=== PATIENT | female | born 1985 | race Caucasian/White ===

== ENCOUNTER 2024-02-17 13:23 | Observation (INO) | payer OTHER, BC, MEDICAID, SELFPAY ==
[2024-02-17 13:28] VITALS: BP 131/95; PULSE 87; RESP 16; TEMP 36.8; O2SAT 98
--- NOTE | 2024-02-17 13:45 | RT.EKG_ITS ---
APPROVED REPORT Exam: Resting ECG Reason for Exam: baseline/screening Patient Location: E HR:77 bpm ECG Measurements Heart Rate 77 AXIS SC 161 P 53 QRSd 94 QRS 16 QT 358 T 49 QTc 404 Conclusion Sinus rhythm...normal P axis, V-rate 60- 99
--- NOTE | 2024-02-17 13:45 | DI.CT_ITS ---
Exam(s) CT HEAD WO EXAM: CT HEAD WO CLINICAL HISTORY: slurred speech, convulsive activity. TECHNIQUE: Imaging Protocol: Axial computed tomography images with coronal and sagittal reformatted images were created and reviewed COMPARISON: No exams were available for comparison FINDINGS: There are no skull fractures. Surgical defects are noted in the medial taylor of both maxillary sinuse s. There is mucosal thickening in the maxillary sinuses. There is a fluid level in the left maxilla ry sinus. Also some fluid in the nasolacrimal ducts. Frontal and sphenoid sinuses are clear as are either oil air cells and mastoid air cells. There is no evidence of intracranial hemorrhage, mass effect, or shift of midline structures. There are no extra-axial fluid collections. The ventricles are not enlarged or shifted and there is no blo od within the ventricular system nor within the basal cisterns. IMPRESSION: No acute intracranial findings on this noninfused CT scan of the brain. Paranasal sinus findings as above. Report called by myself to ER provider 02/17/2024 2:16 p.m. RADIATION DOSE DELIVERED: Total DLP DATA REPOSITORY: All CT scans at this facility are submitted to the National Radiology Data Registry (NRDR) Dose Index Registry (DIR) with the [employer] (ACR). RADIATION OPTIMIZATION: All CT scans at this facility use at least one of these dose optimization te chniques: automated exposure control; mA and/or kV adjustment per patient size (includes targeted exa ms where dose is matched to clinical indication); or iterative reconstruction.
[2024-02-17 14:02] LABS: Abs Immature Grans 0.02 10^3/uL (0.0-0.06); Absolute Basophil Count 0.04 10^3/uL (0.0-0.2); Absolute Eosinophil Count 0.24 10^3/uL (0.0-0.7); Absolute Lymphocyte Count 2.01 10^3/uL (1.2-3.4); Absolute Monocyte Count 0.54 10^3/uL (0.1-0.8); Absolute Neutrophil Count 4.45 10^3/uL (1.2-6.7); Basophils % 0.5 %; Eosinophils % 3.3 %; HCT 28.9 % (36.0-46.0); HGB 8.2 g/dL (11.2-15.7); Immature Grans % 0.3 %; Lymphocytes % 27.5 %; MCH 18.5 pg (27.0-33.0); MCHC 28.4 % (32.0-36.0); MCV 65 fL (80-95); MPV 10.3 fL (8.0-11.0); Monocytes % 7.4 %; Platelet Count 396 10^3/uL (130-400); RBC 4.44 10^6/uL (3.93-5.22); RDW 17.3 % (11.7-14.6)
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
--- NOTE | 2024-02-17 14:08 | DI.CT_ITS ---
Exam(s) CT BRAIN NECK CTA EXAM: CT BRAIN NECK CTA zz CLINICAL HISTORY: convulsions, VILLATORO, slurred speech onset 1300. TECHNIQUE: Imaging Protocol: Axial CT angiography was performed with multi-slice acquisition and mu lti-planar and/or 3D reconstructions. CONTRAST MATERIAL: Intravenous: Omnipaque 350 Contrast volume:structured data in ml COMPARISON: CT CT HEAD WO from 02/17/2024 FINDINGS: CTA Neck W: Aortic arch anatomy: The aortic arch anatomy is conventional and there is no significant stenosis at the origin of the great vessels off of the aortic arch. No intimal flap evident. Anterior circulation: Both common carotid arteries ascend with normal luminal diameters. At the level the carotid bulbs and proximal internal carotid arteries there is no significant plaque and no hemodynamically significant stenosis evident. Posterior circulation: Both vertebral arteries originate in conventional fashion off of the subclavian arteries and there is no stenosis at the origin of the right vertebral artery. The right vertebral artery is dominant and ascends in the foramen transverse area in with luminal diameter of 4 mm. No evidence of stenosis no r thrombus nor dissection in the right vertebral artery. The left vertebral artery is a very thin vessel throughout its length and is poorly opacified in the lower cervical spine and exhibits a luminal diameter of 1 mm in the upper cervical spine level. It d oes, however, appear to contribute to the formation of the basilar artery at the skull base CTA Brain W: Anterior circulation: Both internal carotid arteries are patent in the skull base-carotid canals as well as within the cave rnous sinuses. The supraclinoid aspects of the ICAs are patent. Both A1 segments are patent as are the anterior cer ebral arteries and there is no evidence of aneurysm at the level of the anterior communicating artery . Both middle cerebral arteries are patent with no evidence of significant stenosis nor intraluminal th rombus. There also no aneurysms of these vessels. Posterior circulation: Vertebral artery ascends without significant stenosis. Distally gives off superior cerebellar arteri es Above this level the basilar artery terminates as patent bilateral posterior cerebral arteries. The right P1 segment is thin and the main flow to the right posterior cerebral artery is from a posterior communicating artery on the right side of the ngcotw-dc-Hxymmh. A similar posterior communicating a rtery is not seen on the left side of the vbjooh-aw-Nggaak. Left P1 segment exhibits normal caliber. There is no evidence of aneurysm at the tip of the basilar artery nor elsewhere in the qjieur-ub-Miqo is. CT BRAIN: There is no evidence of intracranial hemorrhage, mass effect, or shift of midline structures. There are no extra-axial fluid collections. Ventricles are not enlarged or shifted. There are no ring enh ancing lesions in the brain and no abnormal meningeal enhancement. IMPRESSION: 1. Patent carotid arteries in the neck. No hemodynamically significant stenosis. 2. Patent dominant right vertebral artery . The left vertebral artery is extremely thin-attenuated vessel, and given the history here of apparent remote dissection (patient apparently does not know wh ich vessels dissected) I suspect that it may have been the left vertebral artery. 3. Patent intracranial arteries as described above. 4. No aneurysms evident 5. Given this patient's symptoms would recommend follow-up MRI with diffusion imaging Findings called by myself to ER provider 02/17/2024 3:10 p.m. RADIATION DOSE DELIVERED: Total DLP DATA REPOSITORY: All CT scans at this facility are submitted to the National Radiology Data Registry (NRDR) Dose Index Registry (DIR) with the [employer] (ACR). RADIATION OPTIMIZATION: All CT scans at this facility use at least one of these dose optimization te chniques: automated exposure control; mA and/or kV adjustment per patient size (includes targeted exa ms where dose is matched to clinical indication); or iterative reconstruction.
[2024-02-17 14:18] LABS: Lactate 1.2 mmol/L (0.9-1.7)
[2024-02-17] MEDS: LORazepam 2 MG/ML VIAL 0.5 MG IVP (14:21)
[2024-02-17 14:22] LABS: Diff Comment RBC Morph Reviewed; Hypochromasia 2+; Microcytosis 2+
[2024-02-17 14:23] LABS: Poikilocytes 1+
[2024-02-17] MEDS: Normal Saline - Diluent 50 ML VIAL IJ (14:31)
[2024-02-17 14:38] LABS: ALT 13 U/L (14-59); AST 11 U/L (15-37); Albumin 3.2 g/dL (3.4-5.0); Alkaline Phosphatase 67 U/L (46-116); Anion Gap 6.6 mmol/L (3-11); BUN 9 mg/dL (7-18); Bilirubin, Total 0.19 mg/dL (0.2-1.0); CO2 28.4 mmol/L (21.0-32.0); CREATININE 0.8 mg/dL (0.55-1.02); Calcium 8.8 mg/dL (8.5-10.1); Chloride 107 mmol/L (98-107); Creatine Kinase 37 U/L (26-192); Estimated GFR 96.06 (mL/min/1.73m2); Glucose 77 mg/dL (74-106); Lipase 36 U/L (16-77); Magnesium 1.8 mg/dL (1.8-2.4); Potassium 3.5 mmol/L (3.5-5.1); Sodium 142 mmol/L (136-145); TSH (W/Ref FT4) 3.92 uIU/mL (0.36-3.74); Total Protein 6.6 g/dL (6.4-8.2); Troponin I < 50 ng/L (< or =60)
[2024-02-17 14:42] LABS: ETHANOL BLOOD < 3.0 mg/dL (<10)
[2024-02-17] MEDS: Omnipaque 350 MG/ML 100 ML BTL IJ (14:49)
--- NOTE | 2024-02-17 15:00 | DI.MRI_ITS ---
Exam(s) MR ANGIO BRAIN WO EXAM: MR ANGIO BRAIN WO CLINICAL HISTORY: vertebral artery findings TECHNIQUE: Performed on 1.5 yue unit with [id number] sequence. COMPARISON: Prior CT scan reviewed FINDINGS: ANTERIOR CIRCULATION: Both internal carotid arteries are patent in the skull base-carotid canals as well as within the cave rnous sinuses. Supraclinoid aspects of these vessels are patent and nonaneurysmal. Both A1 segments are patent as are the anterior cerebral arteries and there is no aneurysm at the level of the anteri or communicating artery. Both middle cerebral arteries appear patent out to the sylvian fissure brancheS POSTERIOR CIRCULATION: Basilar artery is formed by the dominant right vertebral artery as well as twig like contribution fro m the very thin left vertebral artery.. There is no stenosis along the course of the basilar artery. Distally it gives off superior cerebell ar arteries and above this level gives off posterior cerebral arteries which are patent. The right P 1 segment is narrow but this is related to developmental persistent circulation with a right po sterior communicating artery noted supplying the right [employer]. There is no posterior communicating felisa ry on the opposite-left side of the mcoblh-lo-Mhyhvi and thus the left P1 segment is normal diameter. There is no occlusion of the posterior cerebral arteries. No aneurysm of the tip of the basilar ar scotty. VENOUS: There is no evidence of obvious significant venous sinus thrombosis. IMPRESSION: 1. Patent intracranial arteries 2. Basilar artery at the skull base is formed by the dominant right vertebral artery and twig like co ntribution from the very thin left vertebral artery. DATA REPOSITORY:
--- NOTE | 2024-02-17 15:00 | DI.MRI_ITS ---
Exam(s) MR BRAIN WO EXAM: MR BRAIN WO CLINICAL HISTORY: slurred speech on arrival TECHNIQUE: Multiplanar multisequence MRI of the brain was performed. COMPARISON: No exams were available for comparison FINDINGS: CEREBRAL PARENCHYMA: There is no evidence of intracranial hemorrhage, mass effect, or shift of midline structures. There are no extra-axial fluid collections. Ventricles are not enlarged or shifted. There is no significant focal signal abnormality in the cerebellar hemispheres nor within the janeth, m idbrain, and thalami. There is no abnormal signal abnormality in the periventricular white matter. There are no areas of restricted diffusion evident. There is no significant focal signal abnormality evident on diffusion imaging to suggest acute ischem ic event. PITUITARY GLAND: No mass nor parasellar abnormality. No obvious abnormality in the cavernous sinuses. FLOW VOIDS: The expected intracranial flow voids are noted. No evidence of obvious aneurysm nor obvio us vascular malformation. PARANASAL SINUSES: There is surgical defects in the medial taylor of both maxillary sinuses. Some muc osal thickening is noted in the posterior aspect of both maxillary sinuses. Other paranasal sinuses are clear. ORBITS: No obvious findings. IMPRESSION: No significant intracranial findings on this noninfused MRI scan of the brain. Evidence of previous endoscopic paranasal sinus surgery. Mild mucosal thickening noted in the bilate ral maxillary sinuses. Called by myself to ER provider 02/17/2024 4:40 p.m. DATA REPOSITORY:
[2024-02-17 15:04] LABS: FREE T4 0.95 ng/dL (0.76-1.46)
[2024-02-17 16:13] LABS: Bilirubin Negative (Negative); Blood Negative (Negative); Clarity Clear (Clear); Glucose Negative (Negative); Ketones Negative (Negative); Leukocyte Esterase Negative (Negative); Nitrite Negative (Negative); Specific Gravity 1.015 (1.005-1.025); Urobilinogen 0.2 mg/dL (Up to 0.2)
[2024-02-17 16:19] LABS: *AMPHETAMINES SCREEN URINE Negative (Negative); *BARBITURATES SCREEN URINE Negative (Negative); *BENZODIAZEPINES SCREEN URINE Negative (Negative); Cannabinoids THC Negative (Negative); Cocaine Screen,Urine Negative (Negative); METHADONE URINE SCREEN Negative (Negative); OPIATES URINE SCREEN Negative (Negative)
[2024-02-17 16:20] LABS: Tricyclic Antidepressants Negative (Negative)
--- NOTE | 2024-02-17 17:58 | ED.PROG_ITS ---
Date of service: 02/17/24 Time of Service: 17:59 Medical Decision Making 39-year-old female presents with report of seizure-like activity, was evaluated and and care transition from. Neurology recommends observation admission with outpatient EEG and neurology follow-up. Of note, patient does have baseline a nemia, history of menorrhagia, this has been evaluated in [place] previously. She is yet to establish care with primary care physician here. She is neurologically intact does have some very mild slurred speech at time of reassessment. Otherwise nonfocal neurological exam. She received loading dose of Keppra prior to transition of care. Case discussed with admitting hospitalist who will accept patient to their service for overnight observation Quality:[facility] Health Related Social Needs: No Data to Display Sign Out Sign Out Data: Sign Out Comment: Possible seizure, had deficits on arrival- neuro questions todds paraylsis. Onset at 1300 Recommend OBS admit, outpatient EEG follow-up, 500mg Keppra BID upon d/c if patient wishes to keep driving. Low suspicion for stroke at this time, and recommended against tPa which was not given. Patient was loaded on 40mg/kg keppra and 0.5 mg IV ativan, otherwise no continued seizure activity and deficits resolved very quickly on arrival. Last updated by Riki Petersen PA at 02/17/24 16:17 Discharge Plan Disposition Patient Disposition: Home Discharge Details Clinical Impression: Seizure, Maciel's paralysis, Anemia, H/O menorrhagia Primary Care Provider: Unknown,Unknown ED Provider: Dagmar Ortiz Home Meds and New Rx's Prescriptions: No Action No Known Home Meds
--- NOTE | 2024-02-17 18:15 | W.PM.HP.N ---
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 (has history of gastric sleeve surgery) vitals stable, no evidence of active bleeding or blood loss. case discussed with Dr Webster. History of Present Illness History of Present Illness Chief Complaint: altered level of consciousness Narrative: This is a 39-year-old female patient past medical history significant for menorrhagia with anemia, gastric sleeve, right elbow tendon surgery at [facility] [place], who presented to the emergency department after a period Of altered mental status described as seizure which was witnessed with postictal period and todds paralysis. (Did have about 20 minutes of right-sided paralysis which resolved spontaneously). No known history of seizures. Her workup in the emergency department included a head and neck CTA, a MRI and routine lab work. Lab work of significance included a hemoglobin which was 8.2. she has been advised to have iron infusions in the past but as not been set up. No other abnormal findings. CTA and MRI unremarkable. Vital signs stable and symptoms completely resolved. She did have a teleneuro consultation with recommendation for a Keppra load, EEG and observation overnight. per ED record: -Teleneurology with Dr. Padilla @ 1600 -telemetry neuro recommends no tPA, they question Maciel's paralysis for the patient's deficits during possible postictal state, they recommend MRI, they recommend outpatient neurology follow-up after observation overnight, they do recommend 500 mg Keppra twice daily if the patient wishes to remain driving, they recommend possible reconsultation for any structural abnormality of the brain, do not feel the patient's remote vertebral dissection is related to their deficits observed on arrival. Review of Systems All systems reviewed & are unremarkable except as noted in HPI and below PFSH All Active Problems (Updated 02/17/24 @ 18:20 by Krysten Hubbard NP) Altered level of consciousness (Acute) H/O menorrhagia (Acute) Anemia (Chronic) Maciel's paralysis (Acute) Seizure (Acute) Social History Smoking risk assessment performed?: No Housing: apartment Do you feel safe at home: Yes Do you feel safe in your relationship?: Yes Meds Allergies and Home Medications Allergies Allergy/AdvReac Type Severity Reaction Status Date / Time shellfish derived Allergy Severe Other (See Verified 02/17/24 13:38 Comment) amoxicillin AdvReac Mild Skin Rash Verified 02/17/24 13:38 Latex, Natural Rubber AdvReac Mild Skin Rash Verified 02/17/24 13:38 Home Medications ?Medication ?Instructions ?Recorded ?Confirmed ?Type Unknown [No Known Home Meds] 02/17/24 02/17/24 History Exam Const General: cooperative, healthy appearing, comfortable and no acute distress Nutritional Appearance: average body habitus and well nourished Orientation: alert, awake and oriented x3 HENMT Head: normal to inspection, normocephalic and atraumatic Ears: hearing grossly normal bilaterally Face and sinus: normal facial exam Mouth: oral mucosae normal Eyes General: appearance normal, both eyes and all related structures Pupils: PERRL EOM: EOM intact bilaterally and No nystagmus Neck Neck: normal visual inspection, meningismus present and supple Chest Chest: normal inspection of the chest Resp Effort & Inspection: normal respiratory effort Auscultation: clear to auscultation bilaterally Cardio Rate: regular rate Rhythm: regular rhythm Heart Sounds: no murmurs GI Inspection: normal to inspection Palpation: soft and nontender Auscultation: normal bowel sounds Skin General skin exam: no rashes or lesions noted Neuro General: patient alert, patient awake, patient oriented x3, tone normal and no focal motor deficits Cranial Nerves: no nystagmus Extrem General: normal to inspection and full ROM Psych Appearance: grossly normal Mental Status: mental status grossly normal Speech and Movement: speech and movement normal Mood: congruent mood Affect: normal affect Attitude: cooperative Thought Process: normal Thought Content: normal Insight: insight good Judgment: judgment good Results Labs 02/17/24 13:56 02/17/24 13:56 Labs: Laboratory Results - last 24 hr 02/17/24 02/17/24 02/17/24 13:56 13:56 15:50 WBC 7.30 RBC 4.44 Hgb 8.2 L Hct 28.9 L MCV 65 L MCH 18.5 L MCHC 28.4 L RDW 17.3 H Plt Count 396 MPV 10.3 Immature Gran % 0.3 Neutrophils % 61.0 Lymphocytes % 27.5 Monocytes % 7.4 Eosinophils % 3.3 Basophils % 0.5 Nucleated RBC % 0.0 Absolute Neutrophils 4.45 Absolute Lymphocytes 2.01 Absolute Monocytes 0.54 Absolute Eosinophils 0.24 Absolute Basophils 0.04 RBC Morphology See Below Hypochromasia 2+ Poikilocytosis 1+ Microcytosis 2+ VBG Lactate 1.2 Cancelled Sodium 142 Potassium 3.5 Chloride 107 Carbon Dioxide 28.4 Anion Gap 6.6 BUN 9 Creatinine 0.8 Est GFR (CKD-EPI 2020) 96.06 Glucose 77 Calcium 8.8 Magnesium 1.8 Total Bilirubin 0.19 L AST 11 L ALT 13 L Alkaline Phosphatase 67 Creatine Kinase 37 Troponin I < 50 Total Protein 6.6 Albumin 3.2 L Lipase 36 TSH 3.92 H Free T4 0.95 Urine Color Yellow Urine Clarity Clear Urine pH 7.0 Ur Specific [place] 1.015 Urine Protein Negative Urine Ketones Negative Urine Blood Negative Urine Nitrite Negative Urine Bilirubin Negative Urine Urobilinogen 0.2 Ur Leukocyte Esterase Negative Urine Glucose Negative Urine Opiates Screen Negative Urine Methadone Screen Negative Ur Barbiturates Screen Negative Ur Tricyclics Screen Negative Ur Amphetamines Screen Negative U Benzodiazepines Scrn Negative Urine Cocaine Screen Negative Ur THC Screen Negative Ethyl Alcohol < 3.0 Last Vital Signs Temp 36.8 C 02/17/24 13:28 Pulse 87 02/17/24 13:28 Resp 16 02/17/24 13:28 BP 131/95 H 02/17/24 13:28 Pulse Ox 98 02/17/24 13:28 Time Spent Time spent with Patient: 55-74 minutes Time was spent: preparing to see the patient(eg.review tests), obtaining and/or reviewing separately otained hiistory, ordering medications,tests, procedures, indepentently interpreting results and counseling the patient
[2024-02-17 18:33] LABS: Lab Add On Test DONE
[2024-02-17 19:14] LABS: Iron 12 ug/dL (50-170); Total Iron Binding Capacity 472 ug/dL (250-450)
[2024-02-17 19:38] LABS: Ferritin 3 ng/mL (8-252)
--- NOTE | 2024-02-17 19:57 | W.PCEDHO ---
Registration Status: Primary Language: Preferred Language: ED Information & Data Chief Complaint Seizure 02/17/24 14:10 Chief Complaint Seizure 02/17/24 14:06 Triage Note had a seizure while at work. 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 witnessed seizure by co-workers ~ 1pm . full body seizure of unknown length. pt does not remember events. denies hx of seizures. has a headache which has been there all day . stabbing pain behind right eye. pt states she is a weight loss patient ( sleeve in 2019) and feels she may not have had enough protein. Most Recent Vital Signs Temperature 36.8 C 02/17/24 13:28 Temperature Source Skin 02/17/24 13:28 Pulse 87 02/17/24 13:28 Respiratory Rate 16 02/17/24 13:28 Respiratory Effort Normal, Non-Labored 02/17/24 14:13 Respiratory Depth Normal 02/17/24 14:13 Respiratory Pattern Normal 02/17/24 14:13 Blood Pressure 131/95 H 02/17/24 13:28 Blood Pressure Position Sitting 02/17/24 13:28 Pulse Oximetry 98 02/17/24 13:28 Oxygen Delivery Method Room Air 02/17/24 13:28 Oxygen Flow Rate 0 02/17/24 13:28 Pain Level 7 02/17/24 13:28 Comment took tylenol this morning 02/17/24 13:28 Allergies shellfish derived Allergy (Severe, Verified 02/17/24 13:38) Other (See Comment) throat swelling amoxicillin Adverse Reaction (Mild, Verified 02/17/24 13:38) Skin Rash Latex, Natural Rubber Adverse Reaction (Mild, Verified 02/17/24 13:38) Skin Rash Active Medications Generic Name Dose Route Start Last Admin Trade Name Freq PRN Reason Stop Dose Admin Iohexol 100 ml 02/17/24 14:45 02/17/24 14:49 Omnipaque 350 Mg/Ml 100 Ml Btl IJ 03/18/24 23:59 40 ml DIRECTED JEOVANNY Administration Sodium Chloride 50 ml 02/17/24 14:30 02/17/24 14:31 Normal Saline - Diluent 50 Ml Vial IJ 50 ml .FOR DI USE JEOVANNY Administration IV IV Catheter Type [Right Peripheral IV Antecubital] IV Catheter Gauge [Right 18 Antecubital] Diagnostics 08/02/17/24 02/17/24 Range/Units 15:50 13:56 13:56 WBC 7.30 (4.4-10.8) 10^3/uL RBC 4.44 (3.93-5.22) 10^6/uL Hgb 8.2 L (11.2-15.7) g/dL Hct 28.9 L (36.0-46.0) % MCV 65 L (80-95) fL MCH 18.5 L (27.0-33.0) pg MCHC 28.4 L (32.0-36.0) % RDW 17.3 H (11.7-14.6) % Plt Count 396 (130-400) 10^3/uL MPV 10.3 (8.0-11.0) fL Immature Gran % 0.3 % Neutrophils % 61.0 % Lymphocytes % 27.5 % Monocytes % 7.4 % Eosinophils % 3.3 % Basophils % 0.5 % Nucleated RBC % 0.0 (0.0-0.3) % Absolute Neutrophils 4.45 (1.2-6.7) 10^3/uL Absolute Lymphocytes 2.01 (1.2-3.4) 10^3/uL Absolute Monocytes 0.54 (0.1-0.8) 10^3/uL Absolute Eosinophils 0.24 (0.0-0.7) 10^3/uL Absolute Basophils 0.04 (0.0-0.2) 10^3/uL RBC Morphology See Below Hypochromasia 2+ Poikilocytosis 1+ Microcytosis 2+ VBG Lactate Cancelled 1.2 (0.9-1.7) mmol/L Sodium 142 (136-145) mmol/L Potassium 3.5 (3.5-5.1) mmol/L Chloride 107 (98-107) mmol/L Carbon Dioxide 28.4 (21.0-32.0) mmol/L Anion Gap 6.6 (3-11) mmol/L BUN 9 (7-18) mg/dL Creatinine 0.8 (0.55-1.02) mg/dL Est GFR (CKD-EPI 2020) 96.06 (mL/min/1.73m2) Glucose 77 (74-106) mg/dL Calcium 8.8 (8.5-10.1) mg/dL Magnesium 1.8 (1.8-2.4) mg/dL Iron 12 L (50-170) ug/dL TIBC 472 H (250-450) ug/dL Ferritin 3 L (8-252) ng/mL Total Bilirubin 0.19 L (0.2-1.0) mg/dL AST 11 L (15-37) U/L ALT 13 L (14-59) U/L Alkaline Phosphatase 67 (46-116) U/L Creatine Kinase 37 (26-192) U/L Troponin I < 50 (< or =60) ng/L Total Protein 6.6 (6.4-8.2) g/dL Albumin 3.2 L (3.4-5.0) g/dL Lipase 36 (16-77) U/L TSH 3.92 H (0.36-3.74) uIU/mL Free T4 0.95 (0.76-1.46) ng/dL Urine Color Yellow (Yellow) Urine Clarity Clear (Clear) Urine pH 7.0 (5-8) Ur Specific [place] 1.015 (1.005-1.025) Urine Protein Negative (Neg-Trace) mg/dL Urine Ketones Negative (Negative) mg/dL Urine Blood Negative (Negative) Urine Nitrite Negative (Negative) Urine Bilirubin Negative (Negative) Urine Urobilinogen 0.2 (Up to 0.2) mg/dL Ur Leukocyte Esterase Negative (Negative) Urine Glucose Negative (Negative) mg/dL Urine Opiates Screen Negative (Negative) Urine Methadone Screen Negative (Negative) Ur Barbiturates Screen Negative (Negative) Ur Tricyclics Screen Negative (Negative) Ur Amphetamines Screen Negative (Negative) U Benzodiazepines Scrn Negative (Negative) Urine Cocaine Screen Negative (Negative) Ur THC Screen Negative (Negative) Ethyl Alcohol < 3.0 (<10) mg/dL Path Cons Comment Pending Add-On Test Request DONE [id number] Documentation Fingerstick Glucose Start: 02/17/24 13:55 Freq: Status: Active Protocol: Activity Type Activity Date Activity User E-sign Co-sign Detail Recorded Client Recorded Date Recorded By Document 02/17/24 13:54 NACHO DAEMON(3) [id number] 02/17/24 13:55 NACHO DAEMON(4) Intake and Output - 24 Hour Total 02/17/24 13:23 thru 02/17/24 13:28 Weight 99.79 kg Falls Risk Assessment History of Falls Previous History 02/17/24 14:10 Contributing Factors No Factors 02/17/24 14:10 Ambulatory Aids Independent 02/17/24 14:10 Tubes/Lines With any additional score 02/17/24 14:10 Gait Evaluation W/no contributing factors 02/17/24 14:10 Cognition No cognitive impairment 02/17/24 14:10 Fall Total Score 45 02/17/24 14:10 Level of Risk Moderate Risk 02/17/24 14:10 Problems Altered level of consciousness (Acute) Anemia (Chronic) v v v v v v v v v Sending and/or Receiving Nurses: Please use comment section below to note any information pertinent to the patient hand-off not included above. Information / Comments: 4G keppra, 0.5g lorazepam, overnight observation with follow-up outpt EEG. Seizure precautions Report received from: Yeimy Rosado RN
[2024-02-17 20:20] VITALS: BP 124/89; PULSE 81; RESP 18; TEMP 36.8; O2SAT 98; O2SAT 99
[2024-02-17] MEDS: Acetaminophen 325 MG TAB 650 MG PO (20:39)
[2024-02-17 21:05] VITALS: BP 110/74; BP 115/89; BP 121/80; PULSE 101; PULSE 81; PULSE 83
[2024-02-18 06:55] LABS: Abs Immature Grans 0.01 10^3/uL (0.0-0.06); Absolute Basophil Count 0.04 10^3/uL (0.0-0.2); Absolute Lymphocyte Count 1.72 10^3/uL (1.2-3.4); Absolute Monocyte Count 0.38 10^3/uL (0.1-0.8); Absolute Neutrophil Count 3.18 10^3/uL (1.2-6.7); Basophils % 0.7 %; Eosinophils % 3.6 %; HCT 28.2 % (36.0-46.0); HGB 8.1 g/dL (11.2-15.7); Immature Grans % 0.2 %; Lymphocytes % 31.1 %; MCH 18.5 pg (27.0-33.0); MCHC 28.7 % (32.0-36.0); MCV 64 fL (80-95); MPV 10.7 fL (8.0-11.0); Monocytes % 6.9 %; Neutrophils % 57.5 %; Platelet Count 337 10^3/uL (130-400); RBC 4.38 10^6/uL (3.93-5.22); RDW 17.2 % (11.7-14.6); RDW-SD 38.9 fL; WBC 5.53 10^3/uL (4.4-10.8)
[2024-02-18 07:15] LABS: Anion Gap 5.4 mmol/L (3-11); BUN 6 mg/dL (7-18); CO2 28.6 mmol/L (21.0-32.0); CREATININE 0.6 mg/dL (0.55-1.02); Calcium 8.7 mg/dL (8.5-10.1); Chloride 108 mmol/L (98-107); Estimated GFR 117.02 (mL/min/1.73m2); Glucose 87 mg/dL (74-106); Potassium 3.9 mmol/L (3.5-5.1); Sodium 142 mmol/L (136-145)
[2024-02-18 07:42] LABS: Diff Comment RBC Morph Reviewed
[2024-02-18 07:43] LABS: Anisocytosis 1+
[2024-02-18 07:44] LABS: Hypochromasia 2+
[2024-02-18 07:45] LABS: Microcytosis 1+; Poikilocytes 1+
[2024-02-18 07:48] VITALS: BP 126/86; PULSE 78; RESP 15; TEMP 36.8; O2SAT 98
[2024-02-18] MEDS: Acetaminophen 325 MG TAB 650 MG PO (07:55)
[2024-02-18] MEDS: levETIRAcetam 250 MG TAB 500 MG PO (08:38)
--- NOTE | 2024-02-18 08:55 | PDOC.CMIN ---
Date of service: 02/18/24 Time of Service: 08:55 Care Management Initial Assmt Initial Assessment Reason for Hospitalization: Altered level of consciousness Advance Directives Advance Directives: Do you have an Advance Directive: AD On File at [facility]: N 02/17/24 15:15 Date Asked 02/17/24 02/17/24 15:15 AD Date Reviewed COLST On File at [facility] COLST Date Scanned Code Status Resuscitation Status Full Code Care Team Visit Care Team Role Provider Type Unknown Unknown Primary Care Provider STAFF PHYSICIAN SEYMOUR Franco Emergency Provider PHYSICIANS MENTAL TESTER Mike Webster MD Admit Provider [facility] STAFF PHYSICIAN Attending Provider Discharge Plan: Requires monitoring, med management, additional Out Patient Neurology follow up PFSH All Active Problems (Updated 02/17/24 @ 18:20 by Krysten Hubbard NP) Altered level of consciousness (Acute) H/O menorrhagia (Acute) Anemia (Chronic) Maciel's paralysis (Acute) Seizure (Acute) Social History Smoking risk assessment performed?: No Housing: house Do you feel safe at home: Yes Do you feel safe in your relationship?: Yes SDOH(Care Management) Screening Will the Patient Participate in the Screening?: Yes Do you worry about having a steady place to live?: no In the past 12 months, have you had to go without electric, gas, oil or water in your home?: no Have you or anyone in your house had to go without enough food to eat?: no Has lack of transportation kept you from medical appointments or from doing things needed for daily living?: no Has anyone in your support network made you feel unsafe for any reason?: no
[2024-02-18] MEDS: Ketorolac 15 MG/ML VIAL IVP (10:16)
[2024-02-18] MEDS: Normal Saline Flush 10 ML SYR (10:16)
[2024-02-18 11:03] VITALS: BP 118/81; PULSE 68; RESP 16; TEMP 36.5; O2SAT 96
[2024-02-18 11:20] LABS: Lab Add On Test DONE
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
--- NOTE | 2024-02-18 12:50 | PDOC.CMDIS ---
Date of service: 02/18/24 Time of Service: 14:27 LACE Index Scoring Tool Questions: Length of Stay (in days): 1 Was the patient admitted via the E.D.?: Yes E.D. Visits: 1 Answers: Total Score: 5 Risk of Readmission: Low Risk Care Management Discharge Plan Reason for Hospitalization: Altered level of Consciousness Discharge Plan: Cherelle is discharged home with a plan to follow up with community providers and her discharge recommendations. Follow up with Neurology and primary care (t-doc) as scheduled. No new services are ordered prior to this discharge. Patient/Family Education Needs: Review discharge instructions, limitations, medications and plan to follow up with community providers. Discuss ask me three. SDTN Health Related Social Needs: No Data to Display
[2024-02-18 15:54] LABS: Folate 2.8 ng/mL (8.6-20.0); Vitamin B12 142 pg/mL (193-986)
== END 2024-02-18 14:00 | disposition home or self-care (01) ==
LOC: ER 18:09 → MS 20:08
PROVIDERS: Nurse Practitioner Acute Care; Physician Assistant; Admitting Provider Family Medicine; Emergency Provider Physician Assistant; Visit Provider Family Medicine
DX: R56.9 Unspecified convulsions (principal); G83.84 Todd's paralysis (postepileptic); D50.9 Iron deficiency anemia, unspecified; Z98.84 Bariatric surgery status
CPT/HCPCS: 00123; 36415; 36416; 70496; 70498; 70544; 80048; 80053; 80307; 82550; 82962; 83690; 93005; 96365; 96375; 99285; 70450; 70551; 80320; 81003; 82607; 82728; 82746; 83540; 83550; 83605; 83735; 84439; 84443; 84484; 85025; 93010; 99222; 99239; J1885; J1953; J2060; J3490

== ENCOUNTER 2024-02-22 02:14 | Outpatient (CLI) | payer BC, MEDICAID, SELFPAY ==
--- NOTE | 2024-02-22 22:25 | PDOC.EEG ---
Neurology EEG EEG: [facility] Department of Neurology EEG REPORT Date of Recordin02/22/24 Interpreting Physician: Dr. Becky Atkinson PCP/Referring Provider: Kait Crouch NP Reason for study: Cherelle Bardales is a 39 year-old with recent seizure-like event. Current Medications: Home Medications ?Medication ?Instructions ?Recorded ?Confirmed ?Type acetaminophen 500 mg capsule 1,000 mg (2 x 500 mg) PO Q8H PRN 02/18/24 Rx #30 caps cyanocobalamin (vitamin B-12) 1,000 mcg PO DAILY #30 tabs 02/18/24 Rx 1,000 mcg tablet ferrous sulfate 325 mg (65 mg 325 mg PO BID #60 tabs 02/18/24 Rx iron) tablet,delayed release ibuprofen 600 mg tablet 600 mg PO TID PRN PRN #15 tabs 02/18/24 Rx levetiracetam 250 mg tablet 500 mg (2 x 250 mg) PO BID #120 02/18/24 Rx tabs METHODS: A 21 channel digitized electroencephalogram was performed in the [facility] Clinical Neurophysiology Laboratory. The 10/20 international system of electrode placement was used and bipolar and referential electrode montages were recorded. In addition to EEG the patient was monitored for EKG and lateral/vertical eye movements. Activation procedures of photic stimulation and hyperventilation were performed if applicable. Video was used during activation procedures and during events where applicable. The duration of the recording was 30 minutes. DESCRIPTION OF EEG: The patient was noted to be awake and drowsy during the recording. During maximal wakefulness a 9-Hz posterior background rhythm was present which was well-modulated, symmetrical, reactive to eye opening, and of moderate voltage. With eye opening the background activity changed to a low voltage mixture of alpha, beta, and occasional theta range frequencies. Faster frequencies were present in the bilateral anterior head regions. There was a normal anterior-posterior voltage gradient. During drowsiness, there was attenuation of the posterior dominant background rhythm and vertex waves. Stage II sleep was present with symmetrical sleep spindles, K-complexes, and vertex waves. Activating Procedures: Photic stimulation was performed which produced a symmetrical posterior driving response at various flash frequencies. Hyperventilation was performed with moderate effort and produced no physiological slowing of the background. EKG: EKG revealed normal sinus rhythm. INTERPRETATION: This EEG is normal during the awake and sleep states as well as during photic stimulation and hyperventilation. PRIOR EEG: none CLINICAL CORRELATION: No focal regions of cerebral dysfunction or epileptiform activity was present. Epilepsy remains a clinical diagnosis and a normal EEG does not rule out epilepsy. Clinical correlation is advised. Becky Atkinson MD Date of service: 02/22/24
== END 2024-02-22 02:15 | disposition home or self-care (01) ==
LOC: RT 02:14
PROVIDERS: Visit Provider Nurse Practitioner Acute Care
DX: R56.9 Unspecified convulsions (principal)
CPT/HCPCS: 95819

== ENCOUNTER 2024-03-02 15:29 | Outpatient (CLI) | payer BC, MEDICAID, SELFPAY ==
[2024-03-02 15:44] LABS: HGB 9.6 g/dL (11.2-15.7); MCHC 28.2 % (32.0-36.0); Platelet Count 361 10^3/uL (130-400); RDW-SD 44.4 fL; WBC 7.93 10^3/uL (4.4-10.8)
[2024-03-02 15:58] LABS: MCV 65 fL (80-95); RDW 20.5 % (11.7-14.6)
[2024-03-02 15:59] LABS: MCH 18.5 pg (27.0-33.0)
[2024-03-02 16:28] LABS: Calculated LDL 53 mg/dL (<100); Cholesterol 128 mg/dL (<200); HDL Cholesterol 64 mg/dL (40-60); TSH (W/Ref FT4) 6.13 uIU/mL (0.36-3.74); Triglyceride 57 mg/dL (<150)
[2024-03-02 16:40] LABS: Hemoglobin A1C 5.3 % (<5.7)
[2024-03-02 17:14] LABS: FREE T4 1.01 ng/dL (0.76-1.46)
== END 2024-03-02 15:30 | disposition home or self-care (01) ==
LOC: LBO 15:29
PROVIDERS: PCP Nurse Practitioner Family; Visit Provider Nurse Practitioner Family
DX: Z13.220 Encounter for screening for lipoid disorders (principal); D64.9 Anemia, unspecified; Z13.1 Encounter for screening for diabetes mellitus; E89.0 Postprocedural hypothyroidism
CPT/HCPCS: 36415; 80061; 85027; 83036; 84439; 84443